=== PATIENT | male | born 1965 ===

== ENCOUNTER 2021-02-12 18:46 | Inpatient (IN) | payer OTHER, BC ==
[~2021-02-12 18:46] MED LIST: Iopamidol-370 76% 500 ML 1 ML ONE
[2021-02-12] MEDS ORDERED: Fentanyl 100 MCG/2 ML VIAL ONE ×2 (18:53→20:14)
[2021-02-12 19:04] LABS: #Basophils 0.1 thou/uL (0.0-0.2); #Eosinphils 0.4 thou/uL (0.0-0.7); #Lymphocytes 2.8 thou/uL (1.20-3.40); #Monocytes 1.1 thou/uL (0.11-0.59); #Neutrophils 9.8 thou/uL (1.40-6.50); %Basophils 0.8 % (0.0-1.0); %Lymphocytes 19.8 % (21.0-51.0); %Monocytes 7.6 % (0.0-10.0); %Neutrophils 68.9 % (42.0-75.0); Hemoglobin 15.6 g/dL (14.0-18.0); Mean Corpuscular HGB CONC 34.5 g/dL (32.0-36.0); Mean Corpuscular Hemoglobin 32.1 pg (27.0-31.0); Mean Corpuscular Volume 93.1 fL (78.0-98.0); Mean Platelet Volume 9.4 fL (7.4-10.4); Platelet Count 296 thou/uL (130-400); Red Blood Cell (RBC) Count 4.84 mill/uL (4.70-6.10); White Blood Cell (WBC) Count 14.2 thou/uL (4.8-10.8)
[2021-02-12 19:16] LABS: Bilirubin Negative (Negative); Blood, Urine Trace (Negative); Clarity Clear (Clear); Glucose, Urine (Dipstick) Normal (Negative); Ketone, Urine Negative (Negative); Leukocyte Negative Leu/uL (Negative); Mucous/LPF Rare LPF (<2+); Nitrite Negative (Negative); Protein, Urine (Dipstick) 30 mg/dL (Neg-Trace); Specific Gravity, Urine 1.028 (1.002-1.036); Squamous Epithelial None Seen HPF (0-3); Urobilinogen Normal mg/dL (Less than 2); WBC/HPF 0-3 HPF (0-3); pH, Urine 7.5 (5.0-9.0)
[2021-02-12 19:24] LABS: Bacteria/HPF None Seen HPF (None Seen)
[2021-02-12] MEDS ORDERED: Morphine 4 MG/ML VIAL ONE (19:29)
[2021-02-12 19:32] LABS: ALT (SGPT) 39 U/L (8-55); AST (SGOT) 35 U/L (5-34); Alkaline Phosphatase 70 U/L (40-110); Anion Gap 15 mmol/L (10-20); BUN (Urea Nitrogen) 19 mg/dL (8.4-25.7); Bilirubin, Total 0.4 mg/dL (0.2-1.2); Calc. Creatinine Clearance 0 mL/min (70-130); Carbon Dioxide 22 mmol/L (22-29); Chloride 105 mmol/L (98-107); Globulin 3.9 g/dL (2.4-3.5); Glucose 140 mg/dL (70-105); Potassium 4.1 mmol/L (3.5-5.1); Protein, Total 7.9 g/dL (6.0-8.3); Sodium 138 mmol/L (136-145)
[2021-02-12 20:14] LABS: SARS-CoV-2 NAA Rapid Test Not Detected (NotDetected)
[2021-02-12 22:14] VITALS: BMI 26.6
[2021-02-12] MEDS ORDERED: Ondansetron ODT 4 MG TAB PO PRN (22:16)
[2021-02-12] MEDS ORDERED: Cyclobenzaprine 10 MG TAB PO PRN (22:16)
[2021-02-12] MEDS ORDERED: Dextrose 50% Abboject 50 ML SYRINGE SLOW IVP PRN (22:16)
[2021-02-12] MEDS ORDERED: Dextrose 5% in Water 1,000 ML IV PRN (22:16)
[2021-02-12] MEDS ORDERED: Acetaminophen/Codeine 30-300mg Tablet PO PRN ×2 (22:16)
[2021-02-12] MEDS ORDERED: hydrALAZINE 20 MG/ML VIAL SLOW IVP PRN (22:16)
[2021-02-12] MEDS ORDERED: Morphine 4 MG/ML VIAL SLOW IVP PRN (22:29)
[2021-02-12] MEDS: Ibuprofen 800 MG TAB PO SCH ×2 (22:43→22:54)
[2021-02-12] MEDS: Acetaminophen 500 MG TAB PO SCH ×2 (22:43→22:59)
[2021-02-12] MEDS: Sodium Chloride 0.9% 1,000 ML IV SCH (22:44)
[2021-02-12] MEDS ORDERED: Famotidine 20 MG TAB PO SCH (22:45)
[2021-02-12 23:21] LABS: Amphetamine Not Detected (NotDetected); Barbiturates Screen Not Detected (NotDetected); Benzodiazepine Screen Not Detected (NotDetected); Cocaine Metabolite Screen Not Detected (NotDetected); Methadone Not Detected (NotDetected); Methamphetamine Not Detected (NotDetected); Opiate Screen Detected (NotDetected); Oxycodone Screen Not Detected (NotDetected); Phencyclidine (PCP) Not Detected (NotDetected); THC/Cannabinoid Screen Not Detected (NotDetected); Tricyclic Screen Not Detected (NotDetected)
[2021-02-13] MEDS: Ondansetron PF 4 MG/2 ML Vial IVP PRN ×3 (00:08→14:30)
[2021-02-13] MEDS: Ibuprofen 800 MG TAB PO SCH (06:12)
[2021-02-13] MEDS: Acetaminophen 500 MG TAB PO SCH (06:12)
[2021-02-13 06:21] LABS: #Lymphocytes 1.3 thou/uL (1.20-3.40); #Monocytes 1.6 thou/uL (0.11-0.59); #Neutrophils 16.2 thou/uL (1.40-6.50); %Eosinophils 0.2 % (0.0-10.0); %Lymphocytes 6.6 % (21.0-51.0); %Monocytes 8.4 % (0.0-10.0); %Neutrophils 84.8 % (42.0-75.0); Hemoglobin 14.4 g/dL (14.0-18.0); Mean Corpuscular HGB CONC 34.7 g/dL (32.0-36.0); Mean Corpuscular Hemoglobin 32.2 pg (27.0-31.0); Mean Platelet Volume 9.2 fL (7.4-10.4); Platelet Count 269 thou/uL (130-400); Red Blood Cell (RBC) Count 4.48 mill/uL (4.70-6.10); White Blood Cell (WBC) Count 19.1 thou/uL (4.8-10.8)
[2021-02-13 06:45] LABS: Anion Gap 14 mmol/L (10-20); BUN (Urea Nitrogen) 21 mg/dL (8.4-25.7); Calc. Creatinine Clearance 74 mL/min (70-130); Calcium 9.1 mg/dL (7.8-10.44); Carbon Dioxide 24 mmol/L (22-29); Chloride 104 mmol/L (98-107); Glucose 125 mg/dL (70-105); Potassium 4.4 mmol/L (3.5-5.1); Sodium 138 mmol/L (136-145)
[2021-02-13] MEDS ORDERED: Gabapentin 300 MG CAP PO SCH (09:00)
[2021-02-13] MEDS: Acetaminophen/Codeine 30-300mg Tablet PO SCH ×3 (09:11→21:59)
[2021-02-13] MEDS: Gabapentin 100 MG CAP PO SCH ×3 (09:12→21:59)
[2021-02-13] MEDS: Sodium Chloride 0.9% 1,000 ML IV SCH (09:12)
[2021-02-13] MEDS: Acetaminophen 325 MG TAB PO SCH ×3 (09:12→21:58)
[2021-02-13] MEDS: Famotidine 20 MG TAB PO SCH ×2 (09:12→21:59)
[2021-02-13] MEDS ORDERED: Ketorolac Tromethamine 30 MG/ML VIAL IVP SCH (11:45)
[2021-02-13] MEDS ORDERED: Scopolamine 1.5 mg/72 hour Patch TD SCH (14:00)
[2021-02-13] MEDS ORDERED: traMADol HCl 50 MG TAB PO PRN (14:33)
[2021-02-13] MEDS: Ketorolac Tromethamine 30 MG/ML VIAL IVP SCH (18:04)
[2021-02-14] MEDS: Ketorolac Tromethamine 30 MG/ML VIAL IVP SCH ×2 (01:13→06:04)
[2021-02-14] MEDS: Acetaminophen/Codeine 30-300mg Tablet PO SCH ×4 (03:14→20:49)
[2021-02-14] MEDS: Acetaminophen 325 MG TAB PO SCH ×4 (03:14→20:49)
[2021-02-14 04:49] LABS: #Basophils 0.1 thou/uL (0.0-0.2); #Eosinphils 0.1 thou/uL (0.0-0.7); #Monocytes 1.5 thou/uL (0.11-0.59); #Neutrophils 9.3 thou/uL (1.40-6.50); %Basophils 0.4 % (0.0-1.0); %Eosinophils 0.9 % (0.0-10.0); %Lymphocytes 8.7 % (21.0-51.0); %Monocytes 12.4 % (0.0-10.0); %Neutrophils 77.6 % (42.0-75.0); Hemoglobin 12.6 g/dL (14.0-18.0); Mean Corpuscular HGB CONC 34.2 g/dL (32.0-36.0); Mean Corpuscular Hemoglobin 32.3 pg (27.0-31.0); Mean Corpuscular Volume 94.5 fL (78.0-98.0); Mean Platelet Volume 8.4 fL (7.4-10.4); Platelet Count 204 thou/uL (130-400); RBC Distribution Width 12.1 % (11.5-14.5); Red Blood Cell (RBC) Count 3.92 mill/uL (4.70-6.10); White Blood Cell (WBC) Count 11.9 thou/uL (4.8-10.8)
[2021-02-14 05:09] LABS: Anion Gap 10 mmol/L (10-20); BUN (Urea Nitrogen) 24 mg/dL (8.4-25.7); Calc. Creatinine Clearance 63 mL/min (70-130); Carbon Dioxide 29 mmol/L (22-29); Chloride 103 mmol/L (98-107); Glucose 107 mg/dL (70-105); Magnesium 2.1 mg/dL (1.6-2.6); Phosphorus 2.8 mg/dL (2.3-4.7); Potassium 3.9 mmol/L (3.5-5.1); Sodium 138 mmol/L (136-145)
[2021-02-14] MEDS: Famotidine 20 MG TAB PO SCH ×2 (10:34→20:49)
[2021-02-14] MEDS: Gabapentin 100 MG CAP PO SCH ×3 (10:34→20:50)
[2021-02-14 13:07] LABS: Anion Gap 11 mmol/L (10-20); BUN (Urea Nitrogen) 24 mg/dL (8.4-25.7); Calc. Creatinine Clearance 60 mL/min (70-130); Calcium 9.2 mg/dL (7.8-10.44); Carbon Dioxide 28 mmol/L (22-29); Chloride 102 mmol/L (98-107); Glucose 102 mg/dL (70-105); Potassium 4.1 mmol/L (3.5-5.1); Sodium 137 mmol/L (136-145)
[2021-02-14] MEDS: Sodium Chloride 0.9% 1,000 ML IV SCH ×2 (15:31→20:50)
[2021-02-15] MEDS: Acetaminophen 325 MG TAB PO SCH ×2 (02:53→08:08)
[2021-02-15] MEDS: Acetaminophen/Codeine 30-300mg Tablet PO SCH ×2 (02:55→08:09)
[2021-02-15] MEDS: Sodium Chloride 0.9% 1,000 ML IV SCH (02:55)
[2021-02-15 07:09] LABS: Anion Gap 10 mmol/L (10-20); BUN (Urea Nitrogen) 20 mg/dL (8.4-25.7); Calc. Creatinine Clearance 75 mL/min (70-130); Calcium 8.6 mg/dL (7.8-10.44); Carbon Dioxide 27 mmol/L (22-29); Chloride 108 mmol/L (98-107); Glucose 98 mg/dL (70-105); Potassium 3.9 mmol/L (3.5-5.1); Sodium 141 mmol/L (136-145)
[2021-02-15] MEDS: Famotidine 20 MG TAB PO SCH (08:09)
[2021-02-15] MEDS: Gabapentin 100 MG CAP PO SCH (08:10)
[2021-02-15 11:53] VITALS: BP 124/81; TEMP 97.7
== END 2021-02-15 12:48 | disposition home or self-care (01) | DRG 964 ==
LOC: EDBD 18:46 → ERS 18:46 → SURG A 20:01
PROVIDERS: ADMIT Surgery; ATTEND Surgery
DX: S06.0X0A Concussion without loss of consciousness, initial encounter (principal); S22.43XA Multiple fractures of ribs, bilateral, initial encounter for closed fracture; S27.329A Contusion of lung, unspecified, initial encounter; S06.330A Contusion and laceration of cerebrum, unspecified, without loss of consciousness, initial encounter; S32.019A Unspecified fracture of first lumbar vertebra, initial encounter for closed fracture; N17.9 Acute kidney failure, unspecified; Z20.822 Contact with and (suspected) exposure to COVID-19; S42.002A Fracture of unspecified part of left clavicle, initial encounter for closed fracture; S01.01XA Laceration without foreign body of scalp, initial encounter; S42.102A Fracture of unspecified part of scapula, left shoulder, initial encounter for closed fracture; R11.10 Vomiting, unspecified; D72.829 Elevated white blood cell count, unspecified; V89.2XXA Person injured in unspecified motor-vehicle accident, traffic, initial encounter
CPT/HCPCS: 36415; 36416; 70450; 71045; 71260; 72125; 72170; 74177; 80048; 80053; 80306; 80307; 81003; 81015; 83735; 84100; 85025; 94640; G0390; J1885; J2270; J2405; J3010; J7050; J7620; Q9967; U0002

== ENCOUNTER 2021-03-02 11:21 | Outpatient (CLI) | payer BC | END 2021-03-02 11:22 | disposition home or self-care (01) | LOC: BICRAD 11:21 | PROVIDERS: ATTEND Surgery | DX: S22.42XD Multiple fractures of ribs, left side, subsequent encounter for fracture with routine healing (principal) | CPT/HCPCS: 71046 ==